=== PATIENT | female | born 1970 | race Two or more races ===

== ENCOUNTER 2017-12-30 13:22 | Inpatient (IN) | payer SELFPAY ==
[2017-12-30 13:49] VITALS: BMI 23.8
--- NOTE | 2017-12-30 14:08 | PDOC ---
Attending Attestation - Resident Resident Name: Donna Shane - ED Attending Attestation I have performed the following: I have examined & evaluated the patient, The case was reviewed & discussed with the resident, I agree w/resident's findings & plan, Exceptions are as noted - Physicial Exam PE: 12/30/17 16:23 EXAMINATION CONSTITUTIONAL: Awake and alert; well-nourished; in no apparent distress HEAD: Normocephalic; atraumatic EYES: PERRL; EOM intact; bilateral endpoint nystagmus; ENMT: External appears normal; normal oropharynx NECK: Supple; non-tender; no cervical lymphadenopathy; no bruits; CARD: Normal S1, S2; no murmurs, rubs, or gallops RESP: Normal chest excursion with respiration; breath sounds clear and equal bilaterally; no wheezes, rhonchi, or rales ABD: Soft, non-distended; non-tender; no palpable organomegaly, no palpable hernias EXT: Normal ROM in all four extremities; non-tender to palpation; distal pulses intact SKIN: Warm, dry, no rash NEURO: Cranial nerves II through XII are grossly intact; motor is 5 of 54; + finger to nose is abnormal on the right; heal to garcia: abnormal on the right; gait-ataxic; - Medical Decision Making 12/30/17 16:25 Patient is a 47-year-old female with questionable cardiomyopathy presents to the ER with dizziness (vertigo, near syncope, ataxic gait and questionable dysmetria. Will rule out cerebral pathology with CT; will consult neurology. We'll consider MRI. Patient is not a TPA candidate given onset of symptoms of more than 12-18 hours prior to arrival. 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 She also reports associated dizziness, nausea, and NBNB vomiting. No substernal chest pain. No fever or chills. PCP: Dr. Knight. To be admitted to Dr. Jossie Pitts - Medical Decision Making 12/30/17 14:41 EKG obtained 14:21. Normal sinus rhythm with sinus arrythmia. 74 bpm. Possible left atrial enlargement. T wave abnormality, consider anterior ischemia. Prolonged QT. Abnormal EKG. 12/30/17 17:19 Chest x-ray, read and reviewed by Dr. Wu demonstrates mild cardiomegaly that may be due to magnification. No evidence of acute lung disease. <Maday Mckeon - Last Filed: 12/30/17 17:20>
[2017-12-30] MEDS ORDERED: MAG HYDROX/AL HYDROX/SIMETH 30 ML UNIT-DOSE CUP PO ONE (14:21)
[2017-12-30] MEDS ORDERED: RANITIDINE HCL 150 MG/10 ML UNIT-DOSE PO ONE (14:21)
[2017-12-30] MEDS ORDERED: RANITIDINE HCL 150 MG TABLET (FP) ONE (14:39)
[2017-12-30] MEDS ORDERED: MAG HYDROX/AL HYDROX/SIMETH 30 ML UNIT-DOSE CUP ONE (14:39)
[2017-12-30] MEDS ORDERED: NITROGLYCERIN SUBLINGUAL 1/150 0.4 MG TAB SL ONE (14:41)
[2017-12-30] MEDS ORDERED: ASPIRIN 325 MG TABLET PO STA (14:43)
--- NOTE | 2017-12-30 14:48 | PDOC ---
History of Present Illness - General Chief Complaint: Pain, Acute Stated Complaint: NECK PAIN/BACK PAIN Time Seen by Provider: 12/30/17 13:35 History Source: Patient Exam Limitations: Language Barrier - History of Present Illness Initial Comments: 12/30/17 14:46 47 y/o PMH (last at [facility] 2014 for atypical chest pain, possible cardiomyopathy. d/c on aspirin 81mg qd), who presents to the ED c/o VILLEGAS, neck pain x past day. Pt also c/o constant, pulsating "chest pressure." Sx started yesterday afternoon. As per pt, she went to urgent care yesterday with these sx. While there, pt had one episode of NBNB emesis, so she was given antiemetics and sent home. Pt's sx continued into the night, as she had constant VILLEGAS and neck pain radiating to the back. Pain was not alleviated with Tylenol and was a/w three episodes of NBNB emesis. C/o dizziness. Pt also states that her pain has caused her to become SOB. Denies fever, chills, changes in urinary or bowel function. PMH: last at [facility] 2014 for atypical chest pain, possible cardiomyopathy. d/c on aspirin 81mg qd PsxH: appendectomy meds: aspirin 81mg PO qd, compliant allergies: NKDA, seasonal allergies FH: non-contributory SH: works as a [employer]. denies cigarette or recreational drug use. Drinks alcohol socially 12/30/17 19:09 Past History - Past Medical History Allergies/Adverse Reactions: Allergies Allergy/AdvReac Type Severity Reaction Status Date / Time No Known Allergies Allergy Verified 12/30/17 13:40 Home Medications: Ambulatory Orders NK [No Known Home Medication] 12/30/17 Anemia: No Asthma: No Cancer: No Cardiac Disorders: No CVA: No COPD: No CHF: No Dementia: No Diabetes: No GI Disorders: No Disorders: No HTN: No Hypercholesterolemia: No Liver Disease: No Seizures: No Thyroid Disease: No - Surgical History Appendectomy: Yes - Suicide/Smoking/Psychosocial Hx Smoking History: Never smoked Have you smoked in the past 12 months: No Information on smoking cessation initiated: No Hx Alcohol Use: No Drug/Substance Use Hx: No Review of Systems - Review of Systems Able to Perform ROS?: Yes Constitutional: Yes: Weakness Respiratory: Yes: Shortness of Breath Cardiac (ROS): Yes: Chest Pain, Palpitations ABD/GI: Yes: Nausea, Vomiting Musculoskeletal: Yes: Back Pain, Neck Pain All Other Systems: Reviewed and Negative *Physical Exam - Vital Signs Last Vital Signs Temp Pulse Resp BP Pulse Ox 98.2 F 82 16 134/78 100 12/30/17 13:37 12/30/17 13:37 12/30/17 13:37 12/30/17 13:37 12/30/17 13:37 - Physical Exam General Appearance: Yes: Mild Distress (appears uncomfortable, crying d/t pain) HEENT: positive: EOMI, PREETHI Neck: positive: Supple, Other (without TTP ) Respiratory/Chest: positive: Lungs Clear, Normal Breath Sounds Cardiovascular: positive: Regular Rhythm, Regular Rate, Tachycardia Vascular Pulses: Dorsalis-Pedis (R): 2+, Doralis-Pedis (L): 2+ Gastrointestinal/Abdominal: positive: Normal Bowel Sounds, Flat, Soft Musculoskeletal: positive: Normal Inspection Extremity: positive: Normal Range of Motion Neurologic: positive: sales product manager II-XII NML intact Heart Score/ECG Review - ECG Impressions Comment:: 12/30/17 14:57 EKG: normal sinus rhythm, normal axis, RA hypertrophy, new T wave depressions in V2, V3 compared to past EKG. WA 170 ms, QRS 86ms- not widened. Qtc 470 ms. Past EKG: (2014)- with T wave depression V1, with flattening in V2, V3. rate 77bpm, normal sinus rhythm, QTC 463ms, WA 162ms, QRS 74ms 12/30/17 15:01 ED Treatment Course - LABORATORY CBC & Chemistry Diagram: 12/30/17 14:41 12/30/17 14:41 - RADIOLOGY Radiology Studies Ordered: Category Date Time Status CXRPORT [CHEST X-RAY PORTABLE*] [RAD] Stat Radiology 12/30/17 14:20 Ordered Medical Decision Making - Medical Decision Making 12/30/17 15:01 47 y/o PMH (last at [facility] 2014 for atypical chest pain, possible cardiomyopathy. d/c on aspirin 81mg qd), who presents to the ED c/o VILLEGAS, neck pain x past day. Pt also with "pulsating chest pain."For this reason, possible differentials include r/o ACS, pneumothorax, aortic dissection, PE, pancreatitis , esophagitis. Will get stat EKG, cardiac profile to check troponins, CXR. Will give maalox, zantac, nitroglycerin and see if pt's symptoms resolve. Will order the following CBC CMP stat EKG: new t wave inversions/changes in V2, V3 - were flattened before in 2014 cardiac profile - Troponins CXR b-hcg concerning pt's age, before CXR Will give the following stat Aspirin dose [id number] 30ml Maalox 150mg Zantac 12/30/17 16:01 Pt with dizziness, c/o back pain - However r/o stroke as per PMD sales product manager 2-12 grossly intact, with ?heel to garcia (RLE), ?dysmetria on exam Pending Head CT non con May need MRI-brain r/o cerebellar stroke, Neuro consult - will reassess after CT 12/30/17 17:30 CT without intracranial pathology. Will reassess and consult neuro - Dr. Pike 12/30/17 17:43 Discussed with covering neurologist - Dr. Combs , will r/o cerebral venous thrombosis, pseudotumor cerebri . Concerned for intractable VILLEGAS 12/30/17 18:[address] Combs, will need to admit to r/o. For VILLEGAS, will give depakon 500 mg IV q8h Will need MRI w/o contrast -order is in As per neuro, will need admission 12/30/17 19:02 Microblog sent , d/w Dr. Lynch for admission will place in med-surg *DC/Admit/Observation/Transfer Diagnosis at time of Disposition: Headache Qualifiers: Headache type: unspecified Headache chronicity pattern: unspecified pattern Intractability: intractable Qualified Code(s): R51 - Headache - Discharge Dispostion Condition at time of disposition: Guarded Admit: Yes - Referrals - Patient Instructions - Post Discharge Activity
[2017-12-30] MEDS ORDERED: ASPIRIN 325 MG TABLET ONE (14:57)
[2017-12-30 15:00] LABS: BASO % 0.4 % (0-2.0); EOS % 0.9 % (0-4.5); HEMATOCRIT 35.5 % (32.4-45.2); HEMOGLOBIN 11.6 GM/dL (10.7-15.3); LYMPH % 24.5 % (8-40); MCH 30.8 pg (25.7-33.7); MCHC 32.6 g/dl (32.0-36.0); MEAN CELL VOLUME 94.3 fl (80-96); MEAN PLT VOLUME 8.1 fl (7.5-11.1); MONO % 8.3 % (3.8-10.2); NEUT % 65.9 % (42.8-82.8); PLATELET COUNT 219 K/MM3 (134-434); RBC 3.76 M/mm3 (3.60-5.2); RDW 14.5 % (11.6-15.6); WHITE BLOOD COUNT 6.2 K/mm3 (4.0-10.0)
[2017-12-30 15:24] LABS: ALBUMIN 3.7 g/dl (3.4-5.0); ALK PHOS 50 U/L (45-117); ANION GAP 6 (8-16); BILIRUBIN,TOTAL 0.5 mg/dL (0.2-1.0); BLOOD UREA NITROGEN 9 mg/dL (7-18); CALCIUM 8.6 mg/dL (8.5-10.1); CHLORIDE 107 mmol/L (98-107); CO2 27 mmol/L (21-32); CREATININE 0.7 mg/dL (0.55-1.02); GLUCOSE,RANDOM 80 mg/dL (74-106); POTASSIUM 3.8 mmol/L (3.5-5.1); SGOT/AST 16 U/L (15-37); SGPT/ALT 23 U/L (12-78); SODIUM 140 mmol/L (136-145); TOT PROT 6.9 g/dl (6.4-8.2)
[2017-12-30] MEDS ORDERED: MECLIZINE HCL 25 MG TABLET (FP) PO ONE (15:45)
[2017-12-30] MEDS ORDERED: MECLIZINE HCL 25 MG TABLET (FP) ONE (15:51)
--- NOTE | 2017-12-30 18:42 | CON.NEURO ---
Consult Consult Specialty:: NEUROLOGY-ERIC [facility] Reason for Consultation:: Headache - History of Present Illness History of Present Illness: 47 y/o PMH (last at [facility] 2014 for atypical chest pain, possible cardiomyopathy. d/c on aspirin 81mg qd), who presents to the ED c/o VILLEGAS, neck pain x past day. Sx started yesterday afternoon. As per pt, she went to urgent care yesterday with these sx. While there, pt had one episode of NBNB emesis, so she was given antiemetics and sent home. Pt's sx continued into the night, as she had constant VILLEGAS and neck pain radiating to the back. Pain was not alleviated with Tylenol and was a/w three episodes of NBNB emesis. C/o dizziness. Pt also states that her pain has caused her to become SOB. Denies fever, chills, changes in urinary or bowel function. Pt.reports VILLEGAS began 2 weeks ago, sudden onset, occurs several x /day, worse upon recumbency, on top of head radiating to neck, not worsened by coughing without photophobia+mild phonophobia. Vomiting x 2, last night and today, she has been taking 2 Tylenol tabs since last weekend. + lightheadedness/dizziness, no vertigo. She also reports, in last several days lower thoracic, constant pain, pressure type without radiation PMH: last at [facility] 2014 for atypical chest pain, possible cardiomyopathy. d/c on aspirin 81mg qd PsxH: appendectomy meds: aspirin 81mg PO qd, compliant allergies: NKDA, seasonal allergies FH: non-contributory SH: works as a [employer]. denies cigarette or recreational drug use. Drinks alcohol socially - Past Surgical History Past Surgical History: Yes: - Alcohol/Substance Use Hx Alcohol Use: No History of Substance Use: reports: None - Smoking History Smoking history: Never smoked Have you smoked in the past 12 months: No Home Medications - Allergies Allergies/Adverse Reactions: Allergies Allergy/AdvReac Type Severity Reaction Status Date / Time No Known Allergies Allergy Verified 12/30/17 13:40 - Home Medications Home Medications: Ambulatory Orders NK [No Known Home Medication] 12/30/17 Physical Exam-Neuro Vital Signs: Vital Signs Temperature 98.2 F 12/30/17 13:37 Pulse Rate 82 12/30/17 13:37 Respiratory Rate 16 12/30/17 13:37 Blood Pressure 134/78 12/30/17 13:37 O2 Sat by Pulse Oximetry (%) 100 12/30/17 13:37 Labs: CBC, BMP 12/30/17 14:41 12/30/17 14:41 - Neuro Exam Dominant Hand: Right Mini Mental Exam: Normal Cranial Nerves II-XII Intact: No (?? slight diminished right nlf. No signs of increased ICP on fundoscopy) DTR's: 2+ Left Bicep, 2+ Right Bicep, 2+ Left Tricep, 2+ Right Tricep, 2+ Left Brachioradialis, 2+ Right Brachioradialis, 2+ Left Achilles, 2+ Right Achilles ( Knee jerks are 3+ ) Imaging - Results Cat Scan: Report Reviewed (Without acute changes,ventricles of normal size) Assessment/Plan VILLEGAS x 2 weeks, unclear dx but ddx.includes benign intracranial HTN, cerebral venous sinus thrombosis, Suggest: MRI brain Depacon 500mg ivss q8hrs Image thoracic spine(?? xray first) Will follow, Thank you. Donna Combs MD
[2017-12-30] MEDS ORDERED: VALPROATE SODIUM 500 MG/5 ML VIAL ONE (18:51)
[2017-12-30] MEDS: VALPROATE SODIUM 500 MG/5 ML VIAL IVPB SCH (18:58)
[2017-12-30] MEDS ORDERED: MECLIZINE HCL 25 MG TABLET (FP) PO PRN (21:29)
--- NOTE | 2017-12-30 22:15 | PN ---
Teaching Attending Note Name of Resident: Wayne Back ATTENDING PHYSICIAN STATEMENT I saw and evaluated the patient. I reviewed the resident's note and discussed the case with the resident. I agree with the resident's findings and plan as documented. SUBJECTIVE: OBJECTIVE: Vital Signs Period Temp Pulse Resp BP Sys/Pardo Pulse Ox Last 24 Hr 98.2 F-98.6 F 82-88 16-18 110-134/69-78 100-100 Laboratory Tests 12/30/17 12/30/17 12/30/17 14:41 14:41 14:41 WBC 6.2 RBC 3.76 Hgb 11.6 D Hct 35.5 D MCV 94.3 MCH 30.8 MCHC 32.6 RDW 14.5 Plt Count 219 MPV 8.1 Neutrophils % 65.9 Lymphocytes % 24.5 Monocytes % 8.3 Eosinophils % 0.9 Basophils % 0.4 Sodium 140 Potassium 3.8 Chloride 107 Carbon Dioxide 27 Anion Gap 6 L BUN 9 Creatinine 0.7 Creat Clearance w eGFR > 60 Random Glucose 80 Calcium 8.6 Total Bilirubin 0.5 AST 16 ALT 23 Alkaline Phosphatase 50 Creatine Kinase 120 Troponin I 0.05 Total Protein 6.9 Albumin 3.7 Beta HCG, Quant 12/30/17 14:41 WBC RBC Hgb Hct MCV MCH MCHC RDW Plt Count MPV Neutrophils % Lymphocytes % Monocytes % Eosinophils % Basophils % Sodium Potassium Chloride Carbon Dioxide Anion Gap BUN Creatinine Creat Clearance w eGFR Random Glucose Calcium Total Bilirubin AST ALT Alkaline Phosphatase Creatine Kinase Troponin I Total Protein Albumin Beta HCG, Quant < 1.0 Home Medications Medication Instructions Recorded NK [No Known Home Medication] 12/30/17 ASSESSMENT AND PLAN:
--- NOTE | 2017-12-30 23:02 | HP ---
CHIEF COMPLAINT: Headache PCP: HISTORY OF PRESENT ILLNESS: The patient is a 47 yo f w/ No PMH who comes into the ED c/o a 2 week history of headache. The patient state that 2 weeks ago, she began to experience a sudden onset headache which began at the top of her head and radiated to her neck. The headache was refractory to NSAIDS and tylenol. The pain became progressively worse, causing her to go to and Urgent care center yesterday for evaluation. She had 1 episode of NBNB emesis in the urgent care, was given and antiemetic and sent home. Since then, the patient has had 3 other episodes of NBNB vomiting, prompting her to come to the ED. Patient describes the pain as throbbing, starting on the top of her head and radiating down into her neck and back. The pain is worse when lying down and has no relieving symptoms. Patient also complains of constant, "pulsating" chest pressure and SOB associated with the headache. Patient denies fever, chills, abdominal pain, sick contacts. She was admitted to [facility] in 2014 for chest pain and possible post cardiomyopathy. ER course was notable for: (1) CT head Negative (2) Meclizine 25mg, depacon IV 500mg Q8H (3) Recent Travel: none PAST MEDICAL HISTORY: See HPI PAST SURGICAL HISTORY: appendectomy Social History: Smoking: denies Alcohol: denies Drugs: denies Family History: non-contributory Allergies No Known Allergies Allergy (Verified 12/30/17 13:40) HOME MEDICATIONS: Home Medications Medication Instructions Recorded NK [No Known Home Medication] 12/30/17 REVIEW OF SYSTEM Negative except for HPI CONSTITUTIONAL: Absent: fever, chills, diaphoresis, generalized weakness, malaise, loss of appetite, weight change HEENT: Absent: rhinorrhea, nasal congestion, throat pain, throat swelling, difficulty swallowing, mouth swelling, ear pain, eye pain, visual changes CARDIOVASCULAR: Absent: syncope, palpitations, irregular heart rate, peripheral edema RESPIRATORY: Absent: cough, dyspnea with exertion, orthopnea, wheezing, stridor, hemoptysis GASTROINTESTINAL: Absent: abdominal pain, abdominal distension, nausea, vomiting, diarrhea, constipation, melena, hematochezia GENITOURINARY: Absent: dysuria, frequency, urgency, hesitancy, hematuria, flank pain, genital pain MUSCULOSKELETAL: Absent: myalgia, arthralgia, joint swelling, back pain, neck pain SKIN: Absent: rash, itching, pallor HEMATOLOGIC/IMMUNOLOGIC: Absent: easy bleeding, easy bruising, lymphadenopathy, frequent infections ENDOCRINE: Absent: unexplained weight gain, unexplained weight loss, heat intolerance, cold intolerance NEUROLOGIC: Absent: focal weakness or paresthesias, dizziness, unsteady gait, seizure, mental status changes. PSYCHIATRIC: Absent: anxiety, depression, suicidal or homicidal ideation, hallucinations. PHYSICAL EXAMINATION Vital Signs - 24 hr 12/30/17 12/30/17 13:37 18:50 Temperature 98.2 F 98.6 F Pulse Rate 82 Pulse Rate [ 88 Apical] Respiratory 16 18 Rate Blood Pressure 134/78 Blood Pressure 110/69 [Left Arm] O2 Sat by Pulse 100 100 Oximetry (%) GENERAL: Awake, alert, and fully oriented, in no acute distress. HEAD: Normal with no signs of trauma. EYES: Pupils equal, round and reactive to light, extraocular movements intact, sclera anicteric, conjunctiva clear. No lid lag. NECK: Normal range of motion, supple without lymphadenopathy, JVD, or masses. No nuchal rigidity LUNGS: Breath sounds equal, clear to auscultation bilaterally. No wheezes, and no crackles. No accessory muscle use. HEART: Regular rate and rhythm, normal S1 and S2 without murmur, rub or gallop. ABDOMEN: Soft, nontender, not distended, normoactive bowel sounds, no guarding, no rebound, no masses. No hepatomegaly or splenomegaly. LOWER EXTREMITIES: 2+ pulses, warm, well-perfused. No calf tenderness. No peripheral edema. NEUROLOGICAL: Cranial nerves II-XII intact. Normal speech. Strength 5/5 in all four limbs. When asked to extend arms, patient has difficulty keeping arms up, but is able to hold them up against resistance. Similar findings for the lower extremities. PSYCHIATRIC: Cooperative. Good eye contact. Appropriate mood and affect. SKIN: Warm, dry, normal turgor, no rashes or lesions noted, normal capillary refill. Laboratory Results - last 24 hr 12/30/17 12/30/17 12/30/17 14:41 14:41 14:41 WBC 6.2 RBC 3.76 Hgb 11.6 D Hct 35.5 D MCV 94.3 MCH 30.8 MCHC 32.6 RDW 14.5 Plt Count 219 MPV 8.1 Neutrophils % 65.9 Lymphocytes % 24.5 Monocytes % 8.3 Eosinophils % 0.9 Basophils % 0.4 Sodium 140 Potassium 3.8 Chloride 107 Carbon Dioxide 27 Anion Gap 6 L BUN 9 Creatinine 0.7 Creat Clearance w eGFR > 60 Random Glucose 80 Calcium 8.6 Total Bilirubin 0.5 AST 16 ALT 23 Alkaline Phosphatase 50 Creatine Kinase 120 Troponin I 0.05 Total Protein 6.9 Albumin 3.7 Beta HCG, Quant 12/30/17 14:41 WBC RBC Hgb Hct MCV MCH MCHC RDW Plt Count MPV Neutrophils % Lymphocytes % Monocytes % Eosinophils % Basophils % Sodium Potassium Chloride Carbon Dioxide Anion Gap BUN Creatinine Creat Clearance w eGFR Random Glucose Calcium Total Bilirubin AST ALT Alkaline Phosphatase Creatine Kinase Troponin I Total Protein Albumin Beta HCG, Quant < 1.0 ASSESSMENT/PLAN: The patient is a 47 yo f w/ no PMH who is being admitted for further workup of headache. #Headache -Patient seen by neurology in ED -Suggests MRI -s/p depacon 500mg q8h in ED -s/p meclizine 25mg in ED -Patient greatly improved after treatment in ED; will continue with this treatment -f/u MRI results and f/u neurology recommendations. #FEN -no fluids indicated -lytes WNL -regular diet #prophylaxsis -SCDs #Dispo -admit to med surg Visit type - Emergency Visit Emergency Visit: Yes ED Registration Date: 12/30/17 Care time: The patient presented to the Emergency Department on the above date and was hospitalized for further evaluation of their emergent condition. - New Patient This patient is new to me today: Yes Date on this admission: 12/31/17 - Critical Care Critical Care patient: No Hospitalist Screening - Colonoscopy Questionnaire Colonoscopy Questionnaire: Colonoscopy Questionnaire - Patient: 50 - 75 years old and never had a screening colonoscopy: Unknown History of colon or rectal polyps, or CA: Unknown History of IBD, Crohn's disease or UC: Unknown History of abdominal radiation therapy as a child: Unknown - Relative: 1 with colon or rectal CA, or polyps at age 60 or younger: Unknown Colon or rectal CA diagnosed at age 45 or younger: Unknown Multiple relatives with colon or rectal CA: Unknown - Outcome: Screening Result: Negative Screen
[2017-12-31] MEDS: VALPROATE SODIUM 500 MG/5 ML VIAL IVPB SCH ×3 (02:32→18:12)
--- NOTE | 2017-12-31 07:06 | PN ---
Physical Exam: SUBJECTIVE: Patient seen and examined. Says her headache has resolved. Patient denies recent illnesses, sick contact, rash, vision changes, hearing changes, chest pain, SOB, abdominal pain, urinary/ bowel incontinence, myalgia/ joint pain. OBJECTIVE: Vital Signs Period Temp Pulse Resp BP Sys/Pardo Pulse Ox Last 24 Hr 98.2 F-98.6 F 82-88 16-18 110-134/69-78 100-100 GENERAL: The patient is awake, alert, and fully oriented, in no acute distress. HEAD: Normal with no signs of trauma. EYES: PERRL, extraocular movements intact, sclera anicteric, conjunctiva clear. No ptosis. ENT: oropharynx clear without exudates, moist mucous membranes. NECK: supple. no nuchal rigidity LUNGS: Breath sounds equal, clear to auscultation bilaterally, no wheezes, no crackles, no accessory muscle use. HEART: Regular rate and rhythm, S1, S2 without murmur, rub or gallop. ABDOMEN: Soft, nontender, nondistended, normoactive bowel sounds, no guarding, no rebound, no hepatosplenomegaly, no masses. EXTREMITIES: 2+ pulses, warm, well-perfused, no edema. NEUROLOGICAL: sensation grossly intact. Muscle strength 5/5 throughout UE and LE. Pulses 2+ b/l on UE and LE. biceps. heel to garcia normal. + Romberg sign PSYCH: Normal mood, normal affect. SKIN: Warm, dry, normal turgor, no rashes or lesions noted Laboratory Results - last 24 hr 12/30/17 12/30/17 12/30/17 14:41 14:41 14:41 WBC 6.2 RBC 3.76 Hgb 11.6 D Hct 35.5 D MCV 94.3 MCH 30.8 MCHC 32.6 RDW 14.5 Plt Count 219 MPV 8.1 Neutrophils % 65.9 Lymphocytes % 24.5 Monocytes % 8.3 Eosinophils % 0.9 Basophils % 0.4 Sodium 140 Potassium 3.8 Chloride 107 Carbon Dioxide 27 Anion Gap 6 L BUN 9 Creatinine 0.7 Creat Clearance w eGFR > 60 Random Glucose 80 Calcium 8.6 Total Bilirubin 0.5 AST 16 ALT 23 Alkaline Phosphatase 50 Creatine Kinase 120 Troponin I 0.05 Total Protein 6.9 Albumin 3.7 Beta HCG, Quant 12/30/17 14:41 WBC RBC Hgb Hct MCV MCH MCHC RDW Plt Count MPV Neutrophils % Lymphocytes % Monocytes % Eosinophils % Basophils % Sodium Potassium Chloride Carbon Dioxide Anion Gap BUN Creatinine Creat Clearance w eGFR Random Glucose Calcium Total Bilirubin AST ALT Alkaline Phosphatase Creatine Kinase Troponin I Total Protein Albumin Beta HCG, Quant < 1.0 Active Medications Generic Name Dose Route Start Last Admin Trade Name Freq PRN Reason Stop Dose Admin Meclizine HCl 25 mg 12/30/17 21:29 Antivert - PO Q6H PRN VERTIGO Valproate Sodium 500 mg 12/30/17 18:45 12/31/17 02:32 Depacon Injection - IVPB Not Given Q8H MARGE ASSESSMENT/PLAN: 47yo F with an unknown cardiac hx managed with aspirin, who presented to the ED due to 2 weeks of fatigue, neck/ headache which was severe 06/18 yesterday. #Headache -resolved -possibly secondary to decreased visual acuity vs Migraine -Neurology consulted: Dr. Combs -Head CT: Unremarkable -Brain MRI: Several small nonspecific bilateral periventricular and subcortical foci are noted most likely on the basis of microvascular gliosis. The radiological differential diagnosis would also include etiologies such as migraine related chronic ischemic foci, Lyme disease, vasculitis and less likely demyelinating disease. Mild cerebellar tonsillar ectopia. -Brain MRI w MRA: Unremarkable -depacon 500mg q8h, will taper depacon -meclizine 25mg #FEN -no fluids indicated -lytes WNL -regular diet #PPx -SCDs D/C in AM if no events occur overnight. Visit type - Emergency Visit Emergency Visit: Yes ED Registration Date: 12/30/17 Care time: The patient presented to the Emergency Department on the above date and was hospitalized for further evaluation of their emergent condition. - New Patient This patient is new to me today: Yes Date on this admission: 12/31/17 - Critical Care Critical Care patient: No
--- NOTE | 2017-12-31 07:49 | MSN ---
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 Patient was at PCP office Dr. Lopez yesterday morning and was too weak to get up and was brought to the ED. Pain was described as pressure and has been constant for the past 2 weeks with episodes of exacerbation lasting a few minutes and causing chest discomfort, pain is not position dependent. Patient also described feeling weak for the past two weeks and more fatigued than usual. For the past 2 days, the severe pain episodes has caused nausea and 2x non bloody, non bilious emesis. Patient denies recent illnesses, sick contact, rash, vision changes, hearing changes, chest pain, SOB, abdominal pain, urinary/ bowel incontinence, myalgia/ joint pain. Patient states significant fm hx of various cancers in the family: kidney, brain , bone. mother with diabetes and HTN. Patient states that this morning the pain is localized to the neck/ upper trapezius muscle, is 2/10, much improved from 8/10 yesterday. Patient denies any other symptoms this morning. Objective: Last Vital Signs Temp Pulse Resp BP Pulse Ox 98.6 F 88 18 110/69 100 12/31/17 01:49 12/30/17 18:50 12/31/17 01:49 12/30/17 18:50 12/31/17 01:49 Intake & Output 12/28/17 12/29/17 12/30/17 12/31/17 23:59 23:59 23:59 23:59 Intake Total 100 Balance 100 Weight 130 lb 130 lb General: Patient appears comfortable, resting comfortably and in no acute distress. HEENT: PERRL, EOMI. no cervical lymphadenopathy noted. no nuchal rigidity. Trachea midline. Heart: RRR, S1, split S2. no rubs, murmurs or gallop appreciated. Lungs: CTA b/l. no wheezes, crackles or rhonci appreciated. Abdomen: soft, non-distended, nontender to palpation, normoactive bowel sounds x4. Extremities: sensation grossly intact. Muscle strength 5/5 throughout UE and LE. Pulses 2+ b/l on UE and LE. biceps, patellar reflex 2/4 on right, 3+ on left heel to garcia normal. slight oscillation when holding hands outstretched with eyes closed. + Romberg sign CBC, BMP 12/30/17 14:41 12/30/17 14:41 Abnormal Lab Results 12/30/17 14:41 Anion Gap 6 L Imagin/21 Head MRI Several small nonspecific bilateral periventricular and subcortical foci are noted most likely on the basis of microvascular gliosis. The radiological differential diagnosis would also include etiologies such as migraine related chronic ischemic foci, Lyme disease, vasculitis and less likely demyelinating disease. Mild cerebellar tonsillar ectopia. Head CT 12/[address] evidence of acute intracranial pathology. There has been no definite interval change in comparison to a prior CT study of 09/07/2015. CXR 12/30 Mild cardiomegaly that may be due to magnification for which correlation with PA and lateral view of the chest is recommended No acute lung disease is present. ECG 12/30 - left atrial enlargement, QTc 470 Current Medications Meclizine HCl (Antivert -) 25 mg PO Q6H PRN PRN Reason: VERTIGO Valproate Sodium (Depacon Injection -) 500 mg IVPB Q8H MARGE Last Admin: 12/31/17 02:32 Dose: Not Given Assessment/ Plan: 47yo F with an unknown cardiac hx managed with aspirin, who presented to the ED due to 2 weeks of fatigue, neck/ headache which was severe 8/ yesterday. # neck pain/ headache possibly secondary to decreased visual acuity? pseudotumor cerebri? severe migraine? muscle spasm? vasculitis? mild cerebellar herniation? - neuro consult Dr. Combs - CT head, MRI head result above - f/u brain MRA - Depacon 500mg IVS q8h -- taper - Meclizine 25mg q6h prn N/V/ vertigo # FEN - F: po - E: wnl - N: regular diet
[2017-12-31 08:03] LABS: BASO % 0.7 % (0-2.0); EOS % 2.6 % (0-4.5); HEMATOCRIT 34.6 % (32.4-45.2); HEMOGLOBIN 11.4 GM/dL (10.7-15.3); LYMPH % 39.5 % (8-40); MCH 31.2 pg (25.7-33.7); MCHC 32.9 g/dl (32.0-36.0); MEAN CELL VOLUME 94.8 fl (80-96); MEAN PLT VOLUME 9.1 fl (7.5-11.1); MONO % 13.6 % (3.8-10.2); NEUT % 43.6 % (42.8-82.8); PLATELET COUNT 210 K/MM3 (134-434); RBC 3.65 M/mm3 (3.60-5.2); RDW 14.3 % (11.6-15.6); WHITE BLOOD COUNT 3.8 K/mm3 (4.0-10.0)
[2017-12-31 08:17] LABS: INR 1.03 (0.82-1.09); PROTHROMBIN TIME (PATIENT) 11.6 SEC (9.98-11.88)
[2017-12-31 08:31] LABS: ALBUMIN 3.1 g/dl (3.4-5.0); ANION GAP 9 (8-16); BILIRUBIN,TOTAL 0.4 mg/dL (0.2-1.0); BLOOD UREA NITROGEN 11 mg/dL (7-18); CALCIUM 8.7 mg/dL (8.5-10.1); CHLORIDE 105 mmol/L (98-107); CO2 27 mmol/L (21-32); CREATININE 0.7 mg/dL (0.55-1.02); GLUCOSE,RANDOM 82 mg/dL (74-106); MAGNESIUM 2.2 mg/dL (1.8-2.4); PHOSPHOROUS 3.7 mg/dL (2.5-4.9); POTASSIUM 4.3 mmol/L (3.5-5.1); SGOT/AST 18 U/L (15-37); SGPT/ALT 23 U/L (12-78); SODIUM 141 mmol/L (136-145); TOT PROT 6.2 g/dl (6.4-8.2)
[2017-12-31 08:32] LABS: ALK PHOS 45 U/L (45-117)
--- NOTE | 2017-12-31 09:28 | PN ---
Progress Note, Physician Chief Complaint: headache History of Present Illness: 47 y/o PMH (last at [facility] 2014 for atypical chest pain, possible cardiomyopathy. d/c on aspirin 81mg qd), who presents to the ED c/o VILLEGAS, neck pain x past day. Sx started afternoon. As per pt, she went to urgent care with these sx. While there, pt had one episode of NBNB emesis, so she was given antiemetics and sent home. Pt's sx continued into the night, as she had constant VILLEGAS and neck pain radiating to the back. Pain was not alleviated with Tylenol and was a/w three episodes of NBNB emesis. C/o dizziness. Pt also states that her pain has caused her to become SOB. Denies fever, chills, changes in urinary or bowel function. Pt.reports VILLEGAS began 2 weeks ago, sudden onset, occurs several x /day, worse upon recumbency, on top of head radiating to neck, not worsened by coughing without photophobia+mild phonophobia. Vomiting x 2, though patient didn't relate it to headache, she has been taking 2 Tylenol tabs since last weekend. + lightheadedness/dizziness, no vertigo. She also reports, in last several days lower thoracic, constant pain, pressure type without radiation.Headache now resolved. - Current Medication List Current Medications: Active Medications Meclizine HCl (Antivert -) 25 mg PO Q6H PRN PRN Reason: VERTIGO Valproate Sodium (Depacon Injection -) 500 mg IVPB Q8H-IV MARGE - Objective Vital Signs: Vital Signs Temperature 98.6 F 12/31/17 01:49 Pulse Rate 88 12/30/17 18:50 Respiratory Rate 18 12/31/17 01:49 Blood Pressure 110/69 12/30/17 18:50 O2 Sat by Pulse Oximetry (%) 100 12/31/17 01:49 Constitutional: Yes: Well Nourished Labs: CBC, BMP 12/31/17 06:30 12/31/17 06:30 INR, PTT INR 1.03 (0.82-1.09) 12/31/17 06:30 Problem List - Problems (1) Headache Code(s): R51 - HEADACHE Qualifiers: Headache type: unspecified Headache chronicity pattern: unspecified pattern Intractability: intractable Qualified Code(s): R51 - Headache (2) Dizziness Code(s): R42 - DIZZINESS AND GIDDINESS (3) Palpitations Code(s): R00.2 - PALPITATIONS (4) Shortness of breath Code(s): R06.02 - SHORTNESS OF BREATH Assessment/Plan VILLEGAS x 2 weeks, unclear dx but ddx.includes benign intracranial HTN, cerebral venous sinus thrombosis, MRI negative. Headache resolved on decadron (or spontaneously). Would get MRV and taper decadron.
[2017-12-31] MEDS ORDERED: PT OWN MED DRAWER 7, Y5N ONE ×3 (10:03→18:30)
--- NOTE | 2017-12-31 16:10 | EKG ---
Test Reason : Blood Pressure : / mmHG Vent. Rate : 074 BPM Atrial Rate : 074 BPM P-R Int : 170 ms QRS Dur : 086 ms QT Int : 424 ms P-R-T Axes : 050 071 030 degrees QTc Int : 470 ms NORMAL SINUS RHYTHM WITH SINUS ARRHYTHMIA POSSIBLE LEFT ATRIAL ENLARGEMENT T WAVE ABNORMALITY, CONSIDER ANTERIOR ISCHEMIA PROLONGED QT ABNORMAL ECG WHEN COMPARED WITH ECG OF 07-SEP-2015 10:54, NO SIGNIFICANT CHANGE WAS FOUND Confirmed by JERRY LANG MD ([id number]) on 12/31/2017 4:10:16 PM Referred By: Confirmed By:JERRY LANG MD
--- NOTE | 2017-12-31 17:18 | PN ---
Teaching Attending Note Name of Resident: Radha Zavala ATTENDING PHYSICIAN STATEMENT I saw and evaluated the patient. I reviewed the resident's note and discussed the case with the resident. I agree with the resident's findings and plan as documented. SUBJECTIVE:states VILLEGAS has resolved however continues to have intermittently dizzyness. not related to position or movement. has had this for some time however VILLEGAS is what prompted her to the ER. occasionally gets "humming" in the ears. only had VILLEGAS this severe before was admitted and cardiac workup was done. denies CP, SOB, fever, chills, blurred vision, N/V/C/D, LOC, numbness/tingling, frequent dropping of objects OBJECTIVE: Last Vital Signs Temp Pulse Resp BP Pulse Ox 98.0 F 61 18 91/52 100 12/31/17 17:02 12/31/17 17:02 12/31/17 17:02 12/31/17 17:02 12/31/17 01:49 General NAD HEENT no nystagmus, EOMI, PERRL Lungs CTA B/L no wheezing/rales/rhonchi CV S1 S2 RRR no murmur/rub/gallop Neuro CN II -XII grossly intact. negative pronator drift, sensation and strength equal in all 4 extremities negative dysmetria and dysdakinesia. + rhomberg snellen chart R eye 20/50 L eye 20/70 gait witnessed gait with PT and ambulated without difficulty ASSESSMENT AND PLAN: 48yo F with no PMH presented to the ER with VILLEGAS and dizzyness 1. VILLEGAS- concern for pseudotumor cerebri and Cerebral venous sinus thrombosis. VILLEGAS has now resolved after depakote IV MRI brain showing cerebellar tonsillar ectopia which can rarely be seen with pseudotumor. Neuro recommending MRV. will f/u. will need to f/u with optomotrist as outpatient for poor vision which can also contribute to VILLEGAS. meclizine prn 2. DVT ppx- EAM
[2018-01-01] MEDS: VALPROATE SODIUM 500 MG/5 ML VIAL IVPB SCH ×3 (02:30→22:04)
[2018-01-01] MEDS ORDERED: PT OWN MED DRAWER 7, Y5N ONE ×2 (09:19→20:59)
--- NOTE | 2018-01-01 11:30 | DS ---
Physical Exam: SUBJECTIVE: Patient seen and examined. No acutes events overnight. Patient says she slept very well last night without headaches. She denies dizziness, nausea, vomiting, SOB, chest pain, diarrhea. OBJECTIVE: Vital Signs Period Temp Pulse Resp BP Sys/Pardo Pulse Ox Last 24 Hr 97.5 F-98.8 F 56-71 16-18 91-103/42-65 100 PHYSICAL EXAM GENERAL: The patient is awake, alert, and fully oriented, in no acute distress. HEAD: Normal with no signs of trauma. EYES: PERRL, extraocular movements intact, sclera anicteric, conjunctiva clear. No ptosis. ENT: oropharynx clear without exudates, moist mucous membranes. NECK: supple. no nuchal rigidity LUNGS: Breath sounds equal, clear to auscultation bilaterally, no wheezes, no crackles, no accessory muscle use. HEART: Regular rate and rhythm, S1, S2 without murmur, rub or gallop. ABDOMEN: Soft, nontender, nondistended, normoactive bowel sounds, no guarding, no rebound, no hepatosplenomegaly, no masses. EXTREMITIES: 2+ pulses, warm, well-perfused, no edema. NEUROLOGICAL: sensation grossly intact. Muscle strength 5/5 throughout UE and LE. Pulses 2+ b/l on UE and LE. biceps. heel to garcia normal. - Romberg sign PSYCH: Normal mood, normal affect. SKIN: Warm, dry, normal turgor, no rashes or lesions noted LABS HOSPITAL COURSE: Date of Admission:12/30/17 The patient is a 47 yo f w/ No PMH who comes into the ED c/o a 2 week history of worsening headache. Head CT negative in ED. Patient seen by neuro and was started on Depacon and Meclizine. Patient greatly improved after treatment in ED. Brain MRI w MRA: Unremarkable. Patient clinically improved and headache resolved. Patient will follow up with PCP in 1 week. She will need to follow up with her Neurologist in 2 weeks for further evaluation of headache. She will be discharged on oral Depakote until she sees her neurologist outpatient. Patient will also need to see an terrazzo finisher helper for visual eval. Patient may likely need glasses. All questions answered and patient in agreement. Date of Discharge: 01/01/18 Minutes to complete discharge: 35 Discharge Summary Reason For Visit: HEADACHE Current Active Problems Headache (Acute) Condition: Improved - Instructions Diet, Activity, Other Instructions: You were admitted because of severe headaches. All the testing we did came back normal. You will need to follow up with your primary care physician in 1 week. Follow up with a neurologist in 2 weeks to further investigate the cause of your headaches. You will also need to follow up with an Salon Coordinator to evaluate your vision. One reason why you are getting headaches could be because of poor vision and continued eye straining. You may need glasses. If you have worsening of your headaches, chest pain, nausea, vomiting, dizziness , or Shortness of breath, call your doctor immediately or go to the nearest emergency room. Referrals: Carmelo Mathis MD [Staff Physician] - 2 Weeks Disposition: HOME - Home Medications Comprehensive Discharge Medication List: Ambulatory Orders Meclizine HCl [Antivert -] 25 mg PO Q6H PRN #30 tablet 01/01/18
--- NOTE | 2018-01-01 13:47 | DS ---
Physical Exam: SUBJECTIVE: Patient seen and examined. No acutes events overnight. Patient says she slept very well last night without headaches. She denies dizziness, nausea, vomiting, SOB, chest pain, diarrhea. OBJECTIVE: Vital Signs Period Temp Pulse Resp BP Sys/Pardo Pulse Ox Last 24 Hr 97.5 F-98.8 F 56-71 16-18 91-103/42-65 100-100 PHYSICAL EXAM GENERAL: The patient is awake, alert, and fully oriented, in no acute distress. HEAD: Normal with no signs of trauma. EYES: PERRL, extraocular movements intact, sclera anicteric, conjunctiva clear. No ptosis. ENT: oropharynx clear without exudates, moist mucous membranes. NECK: supple. no nuchal rigidity LUNGS: Breath sounds equal, clear to auscultation bilaterally, no wheezes, no crackles, no accessory muscle use. HEART: Regular rate and rhythm, S1, S2 without murmur, rub or gallop. ABDOMEN: Soft, nontender, nondistended, normoactive bowel sounds, no guarding, no rebound, no hepatosplenomegaly, no masses. EXTREMITIES: 2+ pulses, warm, well-perfused, no edema. NEUROLOGICAL: sensation grossly intact. Muscle strength 5/5 throughout UE and LE. Pulses 2+ b/l on UE and LE. biceps. heel to garcia normal. - Romberg sign PSYCH: Normal mood, normal affect. SKIN: Warm, dry, normal turgor, no rashes or lesions noted LABS HOSPITAL COURSE: Date of Admission:12/30/17 The patient is a 47 yo f w/ No PMH who comes into the ED c/o a 2 week history of worsening headache. Head CT negative in ED. Patient seen by neuro and was started on Depacon and Meclizine. Patient greatly improved after treatment in ED. Brain MRI w MRA: Unremarkable. Patient clinically improved and headache resolved. Patient will follow up with PCP in 1 week. She will need to follow up with her Neurologist in 2 weeks for further evaluation of headache. She will be discharged on oral Depakote until she sees her neurologist outpatient. Patient will also need to see an customs guard for visual eval. Patient may likely need glasses. All questions answered and patient in agreement. Date of Discharge: 01/01/18 Minutes to complete discharge: 35 Discharge Summary Reason For Visit: HEADACHE Current Active Problems Headache (Acute) Condition: Improved - Instructions Diet, Activity, Other Instructions: You were admitted because of severe headaches. All the testing we did came back normal. You will need to follow up with your primary care physician in 1 week. Follow up with a neurologist in 2 weeks to further investigate the cause of your headaches. You will also need to follow up with an Pan Tank Worker to evaluate your vision. One reason why you are getting headaches could be because of poor vision and continued eye straining. You may need glasses. Take your medications as directed. Depakote: take 1 tablet every night before bed. Your neurologist will make changes once you see him in 2 weeks. Do not take this medication if you plan on being or breast feeding. Meclizine: take 1 tablet every 6 hours as needed for dizzyness If you have worsening of your headaches, chest pain, nausea, vomiting, dizziness , or Shortness of breath, call your doctor immediately or go to the nearest emergency room. Referrals: Carmelo Mathis MD [Staff Physician] - 2 Weeks Disposition: HOME - Home Medications Comprehensive Discharge Medication List: Ambulatory Orders Divalproex [Depakote -] 500 mg PO HS #14 tablet.ec 01/01/18 Meclizine HCl [Antivert -] 25 mg PO Q6H PRN #30 tablet 01/01/18 This patient is new to me today: No Emergency Visit: Yes ED Registration Date: 12/30/17 Care time: The patient presented to the Emergency Department on the above date and was hospitalized for further evaluation of their emergent condition. Critical Care patient: No - Discharge Referral Referred to [facility] No
--- NOTE | 2018-01-01 14:05 | PN ---
Teaching Attending Note Name of Resident: Radha Zavala ATTENDING PHYSICIAN STATEMENT I saw and evaluated the patient. I reviewed the resident's note and discussed the case with the resident. I agree with the resident's findings and plan as documented. SUBJECTIVE:VILLEGAS and dizzyness has resolved. [place] CP, SOB, fever, chills, N/V/C/D OBJECTIVE: Last Vital Signs Temp Pulse Resp BP Pulse Ox 98.5 F 70 16 102/57 100 01/01/18 10:01/01/18 10:01/01/18 10:00 01/01/18 10:01/01/18 09:00 General NAD ASSESSMENT AND PLAN: 48yo F with no PMH presented to the ER with VILLEGAS and dizzyness 1. VILLEGAS- concern for pseudotumor cerebri and Cerebral venous sinus thrombosis. MRI /MRV negative for acute pathology. symptoms have resolved. resident d/w neurologist and recommends continue depakote HS until re-evaluation. recommended pt to see optomtrist for evaluation for glasses. 2. DVT ppx- EAM 3. d/c home
[2018-01-02] MEDS ORDERED: PT OWN MED DRAWER 7, Y5N ONE (09:08)
[2018-01-02] MEDS: VALPROATE SODIUM 500 MG/5 ML VIAL IVPB SCH (09:15)
[2018-01-02 12:44] VITALS: PULSE 63; TEMP 97.8
[2018-01-02 12:46] VITALS: BP 110/61
== END 2018-01-02 10:42 | disposition home or self-care (01) | DRG 54 ==
LOC: JER 13:22 → JERBED 19:05 → J8W 12-31 01:21
PROVIDERS: ADMIT Internal Medicine; ATTEND Internal Medicine
DX: R51 Headache (principal); R42 Dizziness and giddiness; R00.2 Palpitations; R06.02 Shortness of breath; G93.89 Other specified disorders of brain
CPT/HCPCS: 36415; 70450-TC; 70544-TC; 70551-TC; 71045-TC-FY; 80053; 82550; 83735; 84100; 84484; 84702; 85025; 85610; 93005; 93010; 97116-GP; 97161-GP; 99285-25